=== PATIENT | female | born 1990 | race Caucasian/White ===

== ENCOUNTER 2019-05-16 11:58 | Emergency (ER) | payer SELFPAY ==
[2019-05-16] MEDS ORDERED: Sodium Chloride 0.9% 10 ML Syringe FLUSH PRN (12:30)
[2019-05-16] MEDS ORDERED: Sodium Chloride 0.9% 1,000 ML IV ONE (12:31)
[2019-05-16] MEDS ORDERED: HYDROmorphone 1 MG/ML Syringe IVPUSH ONE (12:41)
[2019-05-16] MEDS ORDERED: Ondansetron 4 MG/2 ML SDV IVPUSH ONE (12:42)
--- NOTE | 2019-05-16 12:57 | EDM.PDOC ---
ED HPI GENERAL MEDICAL PROBLEM - General Chief Complaint: DIRECTOR OF BILLING Problem Stated Complaint: VAGINAL BLEEDING Time Seen by Provider: 05/16/19 12:10 Source of Information: Reports: Patient, RN Notes Reviewed History Limitations: Reports: No Limitations - History of Present Illness INITIAL COMMENTS - FREE TEXT/NARRATIVE: Patient is a 28-year-old female who presents to the ED for evaluation of vaginal bleeding. Patient notes that she had her Mirena IUD taken out by Dr. Bunn on April 11. She notes this went without complications, and she states that she bled per her vagina for 2 weeks after this without any pain. She notes that after 2 week period, she did have unprotected sexual intercourse with a gentleman who had a vasectomy, so she does not think there is any chance she could be . She notes that the bleeding stopped for about 17 days, but then she developed some heavy vaginal bleeding Wednesday night, and this has continued through today. She reports feeling weak, light headed, with severe lower abdominal pain. She does note a headache as well, and she does not have a history of headaches. She reports soaking through an extra observers he tampon, and pad several times a day. She also notes some chills, but has not really had a fever. Some mild nausea, no vomiting but has had diarrhea. She denies any dysuria, urinary urgency or frequency. She did not take any sort of pain medications at home prior to this. She did not follow up with Dr. Bunn regarding this route of vaginal bleeding. Patient notes she has had 2 C-sections previously, and has had a gallbladder removal, but no other abdominal surgeries. Lower Pelvic Pain Score (Numeric/FACES): 10 - Related Data Allergies Allergy/AdvReac Type Severity Reaction Status Date / Time No Known Allergies Allergy Verified 05/16/19 12:15 Home Meds: Home Meds Naproxen [Naprosyn] 500 mg PO Q12HR #20 tab 05/16/19 [Rx] Past Medical History DIRECTOR OF BILLING History: Reports: - Past Surgical History HEENT Surgical History: Reports: Tonsillectomy GI Surgical History: Reports: Cholecystectomy Female Surgical History: Reports: Section Social & Family History - Family History Endocrine/Metabolic: Reports: Diabetes, type II Oncologic: Reports: Colon, Pancreatic - Tobacco Use Smoking Status *Q: Current Every Day Smoker Years of Tobacco use: 14 Packs/Tins Daily: 0.5 - Caffeine Use Caffeine Use: Reports: Coffee - Recreational Drug Use Recreational Drug Use: No ED ROS GENERAL - Review of Systems Review Of Systems: See Below Constitutional: Reports: Chills. Denies: Fever HEENT: Reports: No Symptoms Respiratory: Denies: Shortness of Breath, Cough Cardiovascular: Denies: Chest Pain Endocrine: Reports: No Symptoms GI/Abdominal: Reports: Abdominal Pain (lower abdominal pain), Diarrhea, Nausea. Denies: Vomiting : Reports: Irregular Menses (had IUD, now has vag bleeding s/p one month past removal), Pain (lower abd/suprapubic). Denies: Dysuria Musculoskeletal: Reports: No Symptoms Skin: Reports: No Symptoms Neurological: Reports: Dizziness, Headache, Weakness, Other (pre-syncope feelings). Denies: Syncope Psychiatric: Reports: No Symptoms Hematologic/Lymphatic: Reports: No Symptoms Immunologic: Reports: No Symptoms ED EXAM, RENAL/ - Physical Exam Exam: See Below Exam Limited By: No Limitations General Appearance: Alert, WD/WN, No Apparent Distress Respiratory/Chest: No Respiratory Distress, Lungs Clear, Normal Breath Sounds, No Accessory Muscle Use, Chest Non-Tender Cardiovascular: Normal Peripheral Pulses, Regular Rate, Rhythm, No Edema, No Murmur GI/Abdominal: Normal Bowel Sounds, Soft, No Distention, No Mass, Tender ( bilateral lower abdomen). No: Rigid, Rebound (Female) Exam: Normal External Exam, Normal Speculum Exam, Uterine Tenderness , Vaginal Bleeding (small pool of blood in speculum on exam. pt did have midline tenderness on bimanual) Extremities: Normal Inspection, Normal Capillary Refill Neurological: Alert, Oriented, Normal Cognition, No Motor/Sensory Deficits Psychiatric: Normal Affect, Normal Mood Skin Exam: Warm, Dry, Intact, Normal Color, No Rash Course - Vital Signs Last Recorded V/S: Last Vital Signs Temp 98.0 F 05/16/19 12:08 Pulse 97 05/16/19 12:08 Resp 16 05/16/19 12:08 BP 116/81 05/16/19 12:08 Pulse Ox 99 05/16/19 12:08 Orthostatic Blood Pressure [ 127/91 Standing] Orthostatic Blood Pressure [ 120/77 Sitting] Orthostatic Blood Pressure [ 116/81 Supine] - Orders/Labs/Meds Orders: Active Orders 24 hr Category Date Time Status Peripheral IV Care [RC] . DIRECTED Care 05/16/19 12:30 Ordered Sodium Chloride 0.9% [Saline Flush] Med 05/16/19 12:30 Ordered 10 ml FLUSH ASDIRECTED PRN Peripheral IV Insertion Adult [OM.PC] Stat Oth 05/16/19 12:29 Ordered Medication Orders Sodium Chloride (Saline Flush) 10 ml FLUSH ASDIRECTED PRN PRN Reason: Keep Vein Open Last Admin: 05/16/19 12:54 Dose: 10 ml Labs: Laboratory Tests 05/16/19 05/16/19 05/16/19 Range/Units 12:45 12:45 12:45 WBC (3.98-10.04) K/mm3 RBC (3.98-5.22) M/mm3 Hgb 14.4 (11.2-15.7) gm/dl Hct 42.8 (34.1-44.9) % MCV (79.4-94.8) fl MCH (25.6-32.2) pg MCHC (32.2-35.5) g/dl RDW Std Deviation (36.4-46.3) fL Plt Count (182-369) K/mm3 MPV (9.4-12.3) fl Neutrophils % (Manual) (40-60) % Band Neutrophils % (0-10) % Lymphocytes % (Manual) (20-40) % Atypical Lymphs % % Monocytes % (Manual) (2-10) % Eosinophils % (Manual) (0.7-5.8) % Basophils % (Manual) (0.1-1.2) Platelet Estimate Plt Morphology Comment RBC Morph Comment C-Reactive Protein (<1.0) mg/dL HCG, Qual Negative (NEGATIVE) Urine Color (Yellow) Urine Appearance (Clear) Urine pH (5.0-8.0) Ur Specific [place] (1.005-1.030) Urine Protein (Negative) Urine Glucose (UA) (Negative) Urine Ketones (Negative) Urine Occult Blood (Negative) Urine Nitrite (Negative) Urine Bilirubin (Negative) Urine Urobilinogen (0.2-1.0) Ur Leukocyte Esterase (Negative) Urine RBC (0-5) /hpf Urine WBC (0-5) /hpf Ur Epithelial Cells (0-5) /hpf Urine Bacteria (FEW) /hpf Urine Mucus (FEW) /hpf Blood Type A POSITIVE Gel Antibody Screen Negative 05/16/19 05/16/19 05/16/19 Range/Units 12:45 13:25 14:15 WBC 6.65 (3.98-10.04) K/mm3 RBC 4.66 (3.98-5.22) M/mm3 Hgb 13.8 (11.2-15.7) gm/dl Hct 41.7 (34.1-44.9) % MCV 89.5 (79.4-94.8) fl MCH 29.6 (25.6-32.2) pg MCHC 33.1 (32.2-35.5) g/dl RDW Std Deviation 42.9 (36.4-46.3) fL Plt Count 228 (182-369) K/mm3 MPV 10.3 (9.4-12.3) fl Neutrophils % (Manual) 54 (40-60) % Band Neutrophils % 0 (0-10) % Lymphocytes % (Manual) 45 H (20-40) % Atypical Lymphs % 0 % Monocytes % (Manual) 1 L (2-10) % Eosinophils % (Manual) 0 L (0.7-5.8) % Basophils % (Manual) 0 L (0.1-1.2) Platelet Estimate Adequate Plt Morphology Comment Normal RBC Morph Comment Normal C-Reactive Protein 0.2 (<1.0) mg/dL HCG, Qual (NEGATIVE) Urine Color Red H (Yellow) Urine Appearance Cloudy H (Clear) Urine pH 6.0 (5.0-8.0) Ur Specific [place] 1.020 (1.005-1.030) Urine Protein 2+ H (Negative) Urine Glucose (UA) Negative (Negative) Urine Ketones Negative (Negative) Urine Occult Blood 3+ H (Negative) Urine Nitrite Negative (Negative) Urine Bilirubin 1+ H (Negative) Urine Urobilinogen 0.2 (0.2-1.0) Ur Leukocyte Esterase Negative (Negative) Urine RBC Too numerous to cnt H (0-5) /hpf Urine WBC Not seen (0-5) /hpf Ur Epithelial Cells 0-5 (0-5) /hpf Urine Bacteria Not seen (FEW) /hpf Urine Mucus Not seen (FEW) /hpf Blood Type Gel Antibody Screen Meds: Medications Generic Name Dose Route Start Last Admin Trade Name David PRN Reason Stop Dose Admin Sodium Chloride 10 ml 05/16/19 12:30 05/16/19 12:54 Saline Flush FLUSH 10 ml ASDIRECTED PRN Administration Keep Vein Open Discontinued Medications Generic Name Dose Route Start Last Admin Trade Name David PRN Reason Stop Dose Admin Hydromorphone HCl 1 mg 05/16/19 12:41 05/16/19 12:58 Dilaudid IVPUSH 05/16/19 12:42 1 mg ONETIME ONE Administration Sodium Chloride 1,000 mls @ 999 mls/hr 05/16/19 12:31 05/16/19 12:54 Normal Saline IV 05/16/19 13:31 999 mls/hr ONETIME ONE Administration Ondansetron HCl 4 mg 05/16/19 12:42 05/16/19 12:56 Zofran IVPUSH 05/16/19 12:43 4 mg ONETIME ONE Administration Oxycodone/Acetaminophen 1 tab 05/16/19 13:39 05/16/19 13:46 Percocet 325-5 Mg PO 05/16/19 13:40 1 tab ONETIME ONE Administration - Re-Assessments/Exams Free Text/Narrative Re-Assessment/Exam: 05/16/19 13:06 Patient presents to the ED for evaluation of vaginal bleeding. Due to the length of time of this being after her IUD removal, this very well likely could be the start of her menstrual periods cycle for her. I did order IV placed with some IV fluids, HCG to r/o , hemoglobin and hematocrit, orthostatic vital signs, type and screen, 1 mg Dilaudid and 4 mg Zofran for initial management. The triage nurse did orthostatic vital signs upon arrival, these did not appear to be positive. Due to the patient's subjective complaints , I do not believe that a liter of fluids would necessarily hurt her. 05/16/19 13:40 RN informs me that the patient is still having pain, I did order 1 tab Percocet 5/325 for further pain management. 05/16/19 14:54 I did talk with Dr. Cagle, DIRECTOR OF BILLING on-call, and due to the normal labs, he would suggest that this is probably just her first menstrual period starting again. He notes to have her take some higher dose NSAID therapy and do some follow-up from there. Departure - Departure Time of Disposition: 14:58 Disposition: Home, Self-Care 01 Condition: Fair Clinical Impression: Dysmenorrhea - Discharge Information *PRESCRIPTION DRUG MONITORING PROGRAM REVIEWED*: No *COPY OF PRESCRIPTION DRUG MONITORING REPORT IN PATIENT TRINH: No Instructions: Dysmenorrhea, [id number] Referrals: Taylor Downs NP [Primary Care Provider] - Forms: ED Department Discharge Additional Instructions: You were evaluated in the ER today regarding your vaginal bleeding. All of your laboratory evaluation was within normal limits, you're not that today's ER visit. You did not have any sort of bacterial infection at today's visit. Our DIRECTOR OF BILLING doctor on-call was consulted on this case regarding your symptoms, and he is in agreement that this is likely the start of your regular menses after the IUD removal. He further recommends Naprosyn 500 mg every 12 hours for pain relief, and heating pads to the area for further pain relief. Recommend following up with DIRECTOR OF BILLING, for further management of the dysmenorrhea, (painful periods). You might want to think about going on some form of control to help regulate hormones if you're not try to get . Please return to the ED if her symptoms should change or worsen. - My Orders Last 24 Hours: My Active Orders 05/16/19 12:29 Peripheral IV Insertion Adult [OM.PC] Stat 05/16/19 12:30 Peripheral IV Care [RC] . DIRECTED Sodium Chloride 0.9% [Saline Flush] 10 ml FLUSH ASDIRECTED PRN - Assessment/Plan Last 24 Hours: My Active Orders 05/16/19 12:29 Peripheral IV Insertion Adult [OM.PC] Stat 05/16/19 12:30 Peripheral IV Care [RC] . DIRECTED Sodium Chloride 0.9% [Saline Flush] 10 ml FLUSH ASDIRECTED PRN
[2019-05-16] MEDS ORDERED: Acetaminophen/oxyCODONE 325-5 MG Tab PO ONE (13:39)
[2019-05-16] MEDS ORDERED: Ketorolac 30 MG/ML SDV IVPUSH ONE (15:10)
== END 2019-05-16 15:21 | disposition home or self-care (01) ==
LOC: JD.ED 11:58
DX: N94.6 Dysmenorrhea, unspecified (principal); F17.210 Nicotine dependence, cigarettes, uncomplicated; Z90.49 Acquired absence of other specified parts of digestive tract
CPT/HCPCS: 36415; 81001; 84703; 85007; 85014; 85018; 85027; 86140; 86850; 86900; 86901; 87210; 87808; 96361; 96374; 96375; 99284; A9270; J1170; J1885; J2405; J7040; 99283

== ENCOUNTER 2022-06-24 07:33 | Emergency (ER) | payer MEDICAID ==
[2022-06-24] MEDS ORDERED: Ondansetron 4 MG/2 ML SDV IVPUSH ONE (08:10)
[2022-06-24] MEDS ORDERED: Sodium Chloride 0.9% 10 ML Syringe FLUSH PRN (08:10)
[2022-06-24] MEDS ORDERED: HYDROmorphone 0.5 MG/0.5 ML Syringe IVPUSH ONE ×2 (08:11→11:35)
[2022-06-24] MEDS ORDERED: Codeine/Promethazine 10-6.25 MG/5 ML Syrup 5 ML UD Cup PO ONE (08:11)
[2022-06-24] MEDS ORDERED: Sodium Chloride 0.9% 1,000 ML IV SCH (08:15)
[2022-06-24] MEDS ORDERED: Ketorolac 30 MG/ML SDV IVPUSH ONE (09:10)
[2022-06-24] MEDS ORDERED: HYDROmorphone 1 MG/ML Syringe IVPUSH ONE (10:01)
[2022-06-24] MEDS ORDERED: Albuterol/Ipratropium 3.0-0.5 MG/3 ML Neb Soln NEB ONE (11:00)
== END 2022-06-24 12:07 | disposition home or self-care (01) ==
LOC: JD.ED 07:33
DX: R11.2 Nausea with vomiting, unspecified (principal); B97.4 Respiratory syncytial virus as the cause of diseases classified elsewhere
CPT/HCPCS: 36415; 71045; 80053; 85025; 86140; 94640; 96361; 96374; 96375; 96376; 99285; A9270; J1170; J1885; J2405; J3490; J7030; J7620-GY

== ENCOUNTER 2022-09-22 22:43 | Emergency (ER) | payer SELFPAY ==
[2022-09-22] MEDS ORDERED: HYDROmorphone 1 MG/ML Syringe IVPUSH ONE (22:57)
[2022-09-22] MEDS ORDERED: Metoclopramide 10 MG/2 ML SDV IVPUSH ONE (22:57)
[2022-09-22] MEDS ORDERED: diphenhydrAMINE 50 MG/ML SDV IVPUSH ONE (22:58)
[2022-09-22] MEDS ORDERED: Sodium Chloride 0.9% 1,000 ML IV SCH (23:00)
[2022-09-22] MEDS ORDERED: Ketorolac 30 MG/ML SDV IVPUSH SCH (23:00)
== END 2022-09-23 00:32 | disposition home or self-care (01) ==
LOC: JD.ED 22:43
DX: N23 Unspecified renal colic (principal); J45.909 Unspecified asthma, uncomplicated; Z79.899 Other long term (current) drug therapy; Z86.16 Personal history of COVID-19
CPT/HCPCS: 74176; 81001; 96361; 96374; 96375; 99284; J1170; J1200; J1885; J2765; J7030

== ENCOUNTER 2023-03-03 16:07 | Emergency (ER) | payer MEDICAID | END 2023-03-03 17:30 | disposition home or self-care (01) | LOC: JD.ED 16:07 | DX: R11.2 Nausea with vomiting, unspecified (principal); F17.210 Nicotine dependence, cigarettes, uncomplicated; E66.9 Obesity, unspecified; Z86.16 Personal history of COVID-19; Z79.899 Other long term (current) drug therapy; W18.2XXA Fall in (into) shower or empty bathtub, initial encounter; Y92.002 Bathroom of unspecified non-institutional (private) residence as the place of occurrence of the external cause | CPT/HCPCS: 99282; 99283 ==

== ENCOUNTER 2023-05-25 16:38 | Emergency (ER) | payer MEDICAID ==
[2023-05-25] MEDS ORDERED: Metoclopramide 10 MG/2 ML SDV IVPUSH ONE (17:32)
[2023-05-25 18:04] LABS: BASOPHILS ABSOLUTE AUTO 0.1 K/mm3 (0.0-0.2); BASOPHILS PERCENT AUTO 0.7 % (0.0-1.0); EOSINOPHILS ABSOLUTE AUTO 0.1 K/mm3 (0.0-0.4); EOSINOPHILS PERCENT AUTO 1.5 % (0.0-6.0); HEMATOCRIT 44.8 % (37.0-47.0); HEMOGLOBIN 15.3 gm/dl (12.0-16.0); IMMATURE GRAN ABSOLUTE AUTO 0.03 K/mm3 (0.00-0.05); IMMATURE GRAN PERCENT AUTO 0.4 % (0.0-0.4); LYMPHOCYTES ABSOLUTE AUTO 2.5 K/mm3 (1.0-4.8); LYMPHOCYTES PERCENT AUTO 34.2 % (24.0-44.0); MEAN CORPUSCULAR HEMOGLOBIN 30.8 pg (28.0-32.0); MEAN CORPUSCULAR HGB CONC 34.2 g/dl (32.0-36.0); MEAN CORPUSCULAR VOLUME 90.3 fl (83.0-99.0); MEAN PLATELET VOLUME 9.8 fl (9.4-12.3); MONOCYTES ABSOLUTE AUTO 0.6 K/mm3 (0.0-0.8); NEUTROPHILS ABSOLUTE AUTO 4.1 K/mm3 (1.8-7.7); NEUTROPHILS PERCENT AUTO 55.2 % (41.0-71.0); PLATELET COUNT,PLT 238 K/mm3 (150-400); RED BLOOD CELL COUNT 4.96 M/mm3 (4.10-5.30)
[2023-05-25 18:09] LABS: INR 0.96; PROTHROMBIN TIME 10.3 SECONDS (9.7-12.0)
[2023-05-25 18:10] LABS: PTT,PARTIAL THROMBOPLSTIN TIME 25.9 SECONDS (21.7-31.4)
[2023-05-25 18:16] LABS: A/G RATIO 0.9 (1-2); ALBUMIN 3.5 g/dl (3.4-5.0); BILIRUBIN TOTAL 0.3 mg/dL (0.2-1.0); BUN/CREATININE RATIO 8.8 (14-18); C-REACTIVE PROTEIN 0.6 mg/dL (<1.0); CALCIUM 8.9 mg/dL (8.5-10.1); CREATININE 0.8 mg/dL (0.55-1.02); EST CRCL DRUG DOSING (CG) 87.99 mL/min; MAGNESIUM 1.9 mg/dL (1.8-2.4); PROTEIN TOTAL,TP 7.3 g/dl (6.4-8.2)
[2023-05-25] MEDS ORDERED: Dextrose 5%-0.9% NaCl 1,000 ML IV SCH (18:45)
[2023-05-25] MEDS ORDERED: HYDROmorphone 1 MG/ML Syringe IVPUSH ONE (18:46)
[2023-05-25] MEDS ORDERED: diphenhydrAMINE 50 MG/ML SDV IVPUSH ONE (18:47)
[2023-05-25] MEDS ORDERED: HYDROmorphone 1 MG/ML Syringe IVPUSH PRN (20:28)
== END 2023-05-25 21:17 | disposition home or self-care (01) ==
LOC: JD.ED 16:38
DX: G43.009 Migraine without aura, not intractable, without status migrainosus (principal); E66.9 Obesity, unspecified; Z86.16 Personal history of COVID-19; Z79.899 Other long term (current) drug therapy
CPT/HCPCS: 36415; 70450; 70496; 70498; 80053; 82947; 83735; 85025; 85610; 85730; 86140; 93005; 96374; 96375; 96376; 99284; J1170; J1200; J2765; J7042; 93010

== ENCOUNTER 2023-08-26 09:49 | Emergency (ER) | payer MEDICAID ==
[2023-08-26] MEDS: Sodium Chloride 0.9% 1,000 ML IV SCH (11:23)
[2023-08-26] MEDS: diphenhydrAMINE 50 MG/ML SDV IVPUSH ONE (11:23)
[2023-08-26] MEDS: Magnesium Sulfate/Water 2 GM in Premix Bag 1 BAG IV ONE (11:24)
[2023-08-26] MEDS: Metoclopramide 10 MG/2 ML SDV IVPUSH ONE (11:24)
[2023-08-26] MEDS ORDERED: Ketorolac 30 MG/ML SDV IVPUSH ONE (12:35)
[2023-08-26] MEDS: Ketorolac 15 MG/ML SDV IVPUSH ONE (12:54)
[2023-08-26] MEDS: Haloperidol Lactate 5 MG/ML SDV IVPUSH ONE (12:54)
[2023-08-26] MEDS: Dexamethasone 4 MG Tab PO ONE (12:55)
[2023-08-26] MEDS: SUMAtriptan 6 MG/0.5 ML SDV SUBCUT ONE (13:29)
== END 2023-08-26 14:22 | disposition home or self-care (01) ==
LOC: JD.ED 09:49
DX: G43.909 Migraine, unspecified, not intractable, without status migrainosus (principal); K02.9 Dental caries, unspecified; E66.9 Obesity, unspecified; F17.210 Nicotine dependence, cigarettes, uncomplicated; Z68.42 Body mass index [BMI] 45.0-49.9, adult; Z79.899 Other long term (current) drug therapy; Z86.16 Personal history of COVID-19; Z90.49 Acquired absence of other specified parts of digestive tract
CPT/HCPCS: 96365; 96366; 96372; 96375; 99283; J1200; J1630; J1885; J2765; J3030; J3475; J7030; J8540

== ENCOUNTER 2023-10-07 09:23 | Emergency (ER) | payer MEDICAID ==
[2023-10-07] MEDS ORDERED: Prochlorperazine 10 MG in Sodium Chloride 0.9% 50 ML IV ONE (10:02)
[2023-10-07] MEDS: Ketorolac 15 MG/ML SDV IVPUSH ONE (10:17)
[2023-10-07] MEDS: Prochlorperazine 10 MG/2 ML SDV IV ONE (10:18)
[2023-10-07] MEDS: Sodium Chloride 0.9% 1,000 ML IV ONE (10:18)
[2023-10-07] MEDS: Sodium Chloride 0.9% 10 ML Syringe FLUSH PRN (10:18)
[2023-10-07 10:19] LABS: BASOPHILS ABSOLUTE AUTO 0.1 K/mm3 (0.0-0.2); BASOPHILS PERCENT AUTO 0.9 % (0.0-1.0); EOSINOPHILS ABSOLUTE AUTO 0.1 K/mm3 (0.0-0.4); EOSINOPHILS PERCENT AUTO 1.6 % (0.0-6.0); HEMATOCRIT 46.4 % (37.0-47.0); HEMOGLOBIN 15.6 gm/dl (12.0-16.0); IMMATURE GRAN ABSOLUTE AUTO 0.02 K/mm3 (0.00-0.05); IMMATURE GRAN PERCENT AUTO 0.4 % (0.0-0.4); LYMPHOCYTES ABSOLUTE AUTO 2.3 K/mm3 (1.0-4.8); LYMPHOCYTES PERCENT AUTO 42.3 % (24.0-44.0); MEAN CORPUSCULAR HEMOGLOBIN 29.1 pg (28.0-32.0); MEAN CORPUSCULAR HGB CONC 33.6 g/dl (32.0-36.0); MEAN CORPUSCULAR VOLUME 86.6 fl (83.0-99.0); MEAN PLATELET VOLUME 9.6 fl (9.4-12.3); MONOCYTES ABSOLUTE AUTO 0.4 K/mm3 (0.0-0.8); MONOCYTES PERCENT AUTO 6.9 % (0.0-8.0); NEUTROPHILS ABSOLUTE AUTO 2.6 K/mm3 (1.8-7.7); NEUTROPHILS PERCENT AUTO 47.9 % (41.0-71.0); PLATELET COUNT,PLT 299 K/mm3 (150-400); RED BLOOD CELL COUNT 5.36 M/mm3 (4.10-5.30); WHITE BLOOD CELL COUNT,WBC 5.51 K/mm3 (3.9-11.3)
[2023-10-07] MEDS: Albuterol 0.083% 2.5 MG/3 ML Neb Soln NEB ONE (10:25)
[2023-10-07 10:36] LABS: A/G RATIO 0.9 (1-2); ALBUMIN 3.8 g/dl (3.4-5.0); ANION GAP 17.7 (5-15); BILIRUBIN TOTAL 0.5 mg/dL (0.2-1.0); BUN/CREATININE RATIO 13.8 (14-18); CALCIUM 9.1 mg/dL (8.5-10.1); CREATININE 0.8 mg/dL (0.55-1.02); EST CRCL DRUG DOSING (CG) 87.18 mL/min; POTASSIUM,K 3.7 mEq/L (3.5-5.1); PROTEIN TOTAL,TP 8.1 g/dl (6.4-8.2)
[2023-10-07 10:52] LABS: CORONAVIRUS COVID-19 NAA NEGATIVE (NEGATIVE); INFLUENZA A NAA NEGATIVE (NEGATIVE)
[2023-10-07] MEDS: diphenhydrAMINE 50 MG/ML SDV IVPUSH ONE ×3 (11:01)
== END 2023-10-07 12:31 | disposition home or self-care (01) ==
LOC: JD.ED 09:23
DX: K52.9 Noninfective gastroenteritis and colitis, unspecified (principal); J40 Bronchitis, not specified as acute or chronic; G43.909 Migraine, unspecified, not intractable, without status migrainosus; B34.8 Other viral infections of unspecified site; J45.909 Unspecified asthma, uncomplicated; E66.9 Obesity, unspecified; Z79.899 Other long term (current) drug therapy; Z86.16 Personal history of COVID-19; Z90.49 Acquired absence of other specified parts of digestive tract; Z87.891 Personal history of nicotine dependence; Z68.42 Body mass index [BMI] 45.0-49.9, adult
CPT/HCPCS: 0240U; 36415; 80053; 85025; 94640; 96361; 96374; 96375; 99284; J0780; J1200; J1885; J3490; J7030; J7620-GY

== ENCOUNTER 2023-10-28 07:55 | Emergency (ER) | payer MEDICAID ==
[2023-10-28] MEDS: Lidocaine 2% with EPINEPHrine 1:100,000 20 ML MDV INJECT ONE (08:40)
[2023-10-28] MEDS: diphenhydrAMINE 50 MG/ML SDV IVPUSH STA (08:59)
[2023-10-28] MEDS: Ketorolac 30 MG/ML SDV IVPUSH ONE (09:01)
[2023-10-28] MEDS: Metoclopramide 10 MG/2 ML SDV IVPUSH ONE (09:03)
[2023-10-28] MEDS: Lactated Ringers 1,000 ML IV ONE (09:05)
[2023-10-28] MEDS: Doxycycline Monohydrate 100 MG Cap PO ONE (11:08)
[2023-10-28] MEDS: SUMAtriptan 6 MG/0.5 ML SDV SUBCUT ONE (11:08)
== END 2023-10-28 12:02 | disposition home or self-care (01) ==
LOC: JD.ED 07:55
DX: L02.415 Cutaneous abscess of right lower limb (principal); G43.901 Migraine, unspecified, not intractable, with status migrainosus; F17.210 Nicotine dependence, cigarettes, uncomplicated; E66.9 Obesity, unspecified
CPT/HCPCS: 10060; 96361; 96372; 96374; 96375; 99283; A9270; J1200; J1885; J2765; J3030; J7120; 99284; J3490

== ENCOUNTER 2023-11-27 14:40 | Emergency (ER) | payer MEDICAID ==
[2023-11-27] MEDS: Ketorolac 60 MG/2 ML SDV IM ONE (16:00)
[2023-11-27] MEDS: traMADol 50 MG Tab PO ONE (17:30)
== END 2023-11-27 17:32 | disposition home or self-care (01) ==
LOC: JD.ED 14:40
DX: M25.571 Pain in right ankle and joints of right foot (principal); J45.909 Unspecified asthma, uncomplicated; E66.9 Obesity, unspecified; Z90.49 Acquired absence of other specified parts of digestive tract; Z87.891 Personal history of nicotine dependence; Z79.899 Other long term (current) drug therapy; Z68.41 Body mass index [BMI] 40.0-44.9, adult
CPT/HCPCS: 73610; 96372; 99283; A9270; J1885

== ENCOUNTER 2024-03-13 08:10 | Emergency (ER) | payer MEDICAID ==
[2024-03-13 10:19] LABS: BASOPHILS PERCENT AUTO 0.8 % (0.0-1.0); EOSINOPHILS ABSOLUTE AUTO 0.1 K/mm3 (0.0-0.4); EOSINOPHILS PERCENT AUTO 2.1 % (0.0-6.0); HEMATOCRIT 43.1 % (37.0-47.0); HEMOGLOBIN 14.6 gm/dl (12.0-16.0); IMMATURE GRAN ABSOLUTE AUTO 0.01 K/mm3 (0.00-0.05); IMMATURE GRAN PERCENT AUTO 0.2 % (0.0-0.4); LYMPHOCYTES ABSOLUTE AUTO 1.8 K/mm3 (1.0-4.8); LYMPHOCYTES PERCENT AUTO 34.4 % (24.0-44.0); MEAN CORPUSCULAR HEMOGLOBIN 30.6 pg (28.0-32.0); MEAN CORPUSCULAR HGB CONC 33.9 g/dl (32.0-36.0); MEAN CORPUSCULAR VOLUME 90.4 fl (83.0-99.0); MONOCYTES ABSOLUTE AUTO 0.5 K/mm3 (0.0-0.8); MONOCYTES PERCENT AUTO 9.1 % (0.0-8.0); NEUTROPHILS ABSOLUTE AUTO 2.8 K/mm3 (1.8-7.7); NEUTROPHILS PERCENT AUTO 53.4 % (41.0-71.0); PLATELET COUNT,PLT 202 K/mm3 (150-400); RED BLOOD CELL COUNT 4.77 M/mm3 (4.10-5.30); WHITE BLOOD CELL COUNT,WBC 5.29 K/mm3 (3.9-11.3)
[2024-03-13 10:56] LABS: A/G RATIO 1.1 (1-2); ALBUMIN 3.5 g/dl (3.4-5.0); BILIRUBIN TOTAL 0.4 mg/dL (0.2-1.0); BUN/CREATININE RATIO 7.1 (14-18); CALCIUM 8.8 mg/dL (8.5-10.1); CREATININE 0.7 mg/dL (0.55-1.02); EST CRCL DRUG DOSING (CG) 99.63 mL/min; PROTEIN TOTAL,TP 6.7 g/dl (6.4-8.2)
[2024-03-13 11:28] LABS: LACTIC ACID 0.7 mmol/L (0.4-2.0)
[2024-03-13] MEDS: Sodium Chloride 0.9% 10 ML Syringe FLUSH PRN ×2 (11:33→11:49)
[2024-03-13] MEDS: Iopamidol 612 MG/ML 100 ML Bottle IVPUSH ONE (11:33)
[2024-03-13] MEDS: Ondansetron 4 MG/2 ML SDV IVPUSH ONE (11:49)
[2024-03-13] MEDS: Ketorolac 15 MG/ML SDV IVPUSH ONE (11:49)
[2024-03-13] MEDS: Iopamidol 612 MG/ML 30 ML SDV IVPUSH ONE (13:50)
[2024-03-13] MEDS ORDERED: Naloxone 0.4 MG/ML SDV IVPUSH PRN (15:16)
[2024-03-13] MEDS: fentaNYL 100 MCG/2 ML SDV IVPUSH ONE (15:30)
[2024-03-13 16:14] LABS: CORONAVIRUS COVID-19 NAA NEGATIVE (NEGATIVE); INFLUENZA A NAA NEGATIVE (NEGATIVE); RESPIRATORY SYNCYTIAL VIR NAA NEGATIVE (NEGATIVE)
== END 2024-03-13 17:26 | disposition home or self-care (01) ==
LOC: JD.ED 08:10
DX: L98.9 Disorder of the skin and subcutaneous tissue, unspecified (principal); J45.909 Unspecified asthma, uncomplicated; E66.9 Obesity, unspecified; Z68.42 Body mass index [BMI] 45.0-49.9, adult; F17.210 Nicotine dependence, cigarettes, uncomplicated; Z79.899 Other long term (current) drug therapy; Z90.49 Acquired absence of other specified parts of digestive tract
CPT/HCPCS: 0241U; 36415; 71046; 71260; 74177; 80053; 83605; 83690; 84703; 85025; 85379; 86140; 87040; 96374; 96375; 99284; J1885; J2405; J3010; J3490; Q9967

== ENCOUNTER 2024-03-23 00:57 | Emergency (ER) | payer MEDICAID ==
[2024-03-23] MEDS: Ketorolac 30 MG/ML SDV IVPUSH ONE (01:36)
[2024-03-23] MEDS: Ondansetron 4 MG/2 ML SDV IVPUSH ONE (01:36)
[2024-03-23] MEDS: Sodium Chloride 0.9% 10 ML Syringe FLUSH PRN (01:36)
[2024-03-23 01:48] LABS: BASOPHILS ABSOLUTE AUTO 0.1 K/mm3 (0.0-0.2); BASOPHILS PERCENT AUTO 0.8 % (0.0-1.0); EOSINOPHILS ABSOLUTE AUTO 0.2 K/mm3 (0.0-0.4); EOSINOPHILS PERCENT AUTO 2.3 % (0.0-6.0); HEMATOCRIT 45.3 % (37.0-47.0); IMMATURE GRAN ABSOLUTE AUTO 0.01 K/mm3 (0.00-0.05); IMMATURE GRAN PERCENT AUTO 0.2 % (0.0-0.4); LYMPHOCYTES ABSOLUTE AUTO 2.8 K/mm3 (1.0-4.8); LYMPHOCYTES PERCENT AUTO 43.1 % (24.0-44.0); MEAN CORPUSCULAR HEMOGLOBIN 29.8 pg (28.0-32.0); MEAN CORPUSCULAR HGB CONC 33.1 g/dl (32.0-36.0); MEAN CORPUSCULAR VOLUME 90.1 fl (83.0-99.0); MEAN PLATELET VOLUME 10.2 fl (9.4-12.3); MONOCYTES ABSOLUTE AUTO 0.5 K/mm3 (0.0-0.8); MONOCYTES PERCENT AUTO 8.3 % (0.0-8.0); NEUTROPHILS PERCENT AUTO 45.3 % (41.0-71.0); PLATELET COUNT,PLT 255 K/mm3 (150-400); RED BLOOD CELL COUNT 5.03 M/mm3 (4.10-5.30); WHITE BLOOD CELL COUNT,WBC 6.52 K/mm3 (3.9-11.3)
[2024-03-23 02:26] LABS: ALBUMIN 3.6 g/dl (3.4-5.0); ANION GAP 16.5 (5-15); BILIRUBIN TOTAL 0.5 mg/dL (0.2-1.0); C-REACTIVE PROTEIN 0.2 mg/dL (<0.30); CALCIUM 8.7 mg/dL (8.5-10.1); CREATININE 0.8 mg/dL (0.55-1.02); EST CRCL DRUG DOSING (CG) 87.18 mL/min; MAGNESIUM 1.7 mg/dL (1.8-2.4); POTASSIUM,K 3.5 mEq/L (3.5-5.1); PROTEIN TOTAL,TP 7.1 g/dl (6.4-8.2)
[2024-03-23] MEDS: Tamsulosin 0.4 MG Cap.ER PO ONE (02:37)
== END 2024-03-23 02:48 | disposition home or self-care (01) ==
LOC: JD.ED 00:57
DX: N13.2 Hydronephrosis with renal and ureteral calculous obstruction (principal); E66.9 Obesity, unspecified; F17.210 Nicotine dependence, cigarettes, uncomplicated; Z79.899 Other long term (current) drug therapy; Z90.49 Acquired absence of other specified parts of digestive tract; Z68.42 Body mass index [BMI] 45.0-49.9, adult
CPT/HCPCS: 36415; 74176; 80053; 83735; 85025; 86140; 96374; 96375; 99284; A9270; J1885; J2405; J3490

== ENCOUNTER 2024-04-11 00:23 | Emergency (ER) | payer MEDICAID ==
[2024-04-11] MEDS ORDERED: Sodium Chloride 0.9% 10 ML Syringe FLUSH PRN (00:54)
[2024-04-11 01:01] LABS: BASOPHILS ABSOLUTE AUTO 0.1 K/mm3 (0.0-0.2); BASOPHILS PERCENT AUTO 0.6 % (0.0-1.0); EOSINOPHILS ABSOLUTE AUTO 0.2 K/mm3 (0.0-0.4); EOSINOPHILS PERCENT AUTO 1.8 % (0.0-6.0); HEMATOCRIT 46.6 % (37.0-47.0); HEMOGLOBIN 15.6 gm/dl (12.0-16.0); IMMATURE GRAN ABSOLUTE AUTO 0.02 K/mm3 (0.00-0.05); IMMATURE GRAN PERCENT AUTO 0.2 % (0.0-0.4); LYMPHOCYTES ABSOLUTE AUTO 3.1 K/mm3 (1.0-4.8); LYMPHOCYTES PERCENT AUTO 36.6 % (24.0-44.0); MEAN CORPUSCULAR HEMOGLOBIN 29.9 pg (28.0-32.0); MEAN CORPUSCULAR HGB CONC 33.5 g/dl (32.0-36.0); MEAN CORPUSCULAR VOLUME 89.4 fl (83.0-99.0); MEAN PLATELET VOLUME 10.3 fl (9.4-12.3); MONOCYTES ABSOLUTE AUTO 0.8 K/mm3 (0.0-0.8); MONOCYTES PERCENT AUTO 9.2 % (0.0-8.0); NEUTROPHILS ABSOLUTE AUTO 4.3 K/mm3 (1.8-7.7); NEUTROPHILS PERCENT AUTO 51.6 % (41.0-71.0); PLATELET COUNT,PLT 268 K/mm3 (150-400); RED BLOOD CELL COUNT 5.21 M/mm3 (4.10-5.30); WHITE BLOOD CELL COUNT,WBC 8.38 K/mm3 (3.9-11.3)
[2024-04-11] MEDS: HYDROmorphone 0.5 MG/0.5 ML Syringe IVPUSH ONE ×2 (01:04→02:15)
[2024-04-11] MEDS: Ketorolac 30 MG/ML SDV IVPUSH ONE (01:05)
[2024-04-11] MEDS: Sodium Chloride 0.9% 1,000 ML IV STA (01:05)
[2024-04-11] MEDS: Ondansetron 4 MG/2 ML SDV ONE (01:05)
[2024-04-11 01:49] LABS: A/G RATIO 0.9 (1-2); ALBUMIN 3.6 g/dl (3.4-5.0); ANION GAP 17.8 (5-15); BILIRUBIN TOTAL 0.3 mg/dL (0.2-1.0); CALCIUM 9.2 mg/dL (8.5-10.1); EST CRCL DRUG DOSING (CG) 72.68 mL/min; PROTEIN TOTAL,TP 7.6 g/dl (6.4-8.2)
[2024-04-11 01:54] LABS: POTASSIUM,K 3.8 mEq/L (3.5-5.1)
[2024-04-11 02:30] LABS: APPEARANCE,URINE CLOUDY (Clear); BILIRUBIN,URINE NEGATIVE (Negative); COLOR,URINE YELLOW (Yellow); GLUCOSE,URINE NEGATIVE (Negative); KETONES,URINE TRACE (Negative); LEUKOCYTE ESTERASE,URINE NEGATIVE (Negative); NITRITE,URINE NEGATIVE (Negative); OCCULT BLOOD,URINE 3+ (Negative); PROTEIN,URINE 1+ (Negative); UROBILINOGEN,URINE 0.2 (0.2-1.0)
[2024-04-11 02:49] LABS: BACTERIA,URINE MODERATE /hpf (FEW); CALCIUM OXALATE CRYSTALS,URINE RARE; MUCUS,URINE FEW /hpf (FEW); RBC,URINE 50-75 /hpf (0-5); WBC,URINE 0-5 /hpf (0-5)
== END 2024-04-11 03:24 | disposition home or self-care (01) ==
LOC: JD.ED 00:23
DX: N13.2 Hydronephrosis with renal and ureteral calculous obstruction (principal); N23 Unspecified renal colic; E66.9 Obesity, unspecified; Z68.41 Body mass index [BMI] 40.0-44.9, adult; J45.909 Unspecified asthma, uncomplicated; Z90.49 Acquired absence of other specified parts of digestive tract; Z79.899 Other long term (current) drug therapy
CPT/HCPCS: 36415; 74176; 80053; 81001; 83690; 84703; 85025; 96361; 96374; 96375; 96376; 99284; J1170; J1885; J2405; J7030

== ENCOUNTER 2024-04-12 08:22 | Emergency (ER) | payer MEDICAID ==
[2024-04-12 09:43] LABS: BASOPHILS PERCENT AUTO 0.5 % (0.0-1.0); EOSINOPHILS ABSOLUTE AUTO 0.1 K/mm3 (0.0-0.4); EOSINOPHILS PERCENT AUTO 2.1 % (0.0-6.0); HEMATOCRIT 45.5 % (37.0-47.0); HEMOGLOBIN 14.7 gm/dl (12.0-16.0); IMMATURE GRAN ABSOLUTE AUTO 0.03 K/mm3 (0.00-0.05); IMMATURE GRAN PERCENT AUTO 0.5 % (0.0-0.4); LYMPHOCYTES ABSOLUTE AUTO 1.7 K/mm3 (1.0-4.8); LYMPHOCYTES PERCENT AUTO 25.6 % (24.0-44.0); MEAN CORPUSCULAR HEMOGLOBIN 29.6 pg (28.0-32.0); MEAN CORPUSCULAR HGB CONC 32.3 g/dl (32.0-36.0); MEAN CORPUSCULAR VOLUME 91.5 fl (83.0-99.0); MONOCYTES ABSOLUTE AUTO 0.5 K/mm3 (0.0-0.8); MONOCYTES PERCENT AUTO 7.1 % (0.0-8.0); NEUTROPHILS ABSOLUTE AUTO 4.3 K/mm3 (1.8-7.7); NEUTROPHILS PERCENT AUTO 64.2 % (41.0-71.0); PLATELET COUNT,PLT 207 K/mm3 (150-400); RED BLOOD CELL COUNT 4.97 M/mm3 (4.10-5.30); WHITE BLOOD CELL COUNT,WBC 6.61 K/mm3 (3.9-11.3)
[2024-04-12] MEDS: Ondansetron 4 MG/2 ML SDV IVPUSH ONE (09:46)
[2024-04-12] MEDS: Sodium Chloride 0.9% 10 ML Syringe FLUSH PRN (09:48)
[2024-04-12] MEDS: HYDROmorphone 0.5 MG/0.5 ML Syringe IVPUSH ONE ×3 (09:48→12:00)
[2024-04-12] MEDS: Sodium Chloride 0.9% 1,000 ML IV SCH (09:51)
[2024-04-12 09:57] LABS: A/G RATIO 0.9 (1-2); ALBUMIN 3.3 g/dl (3.4-5.0); ANION GAP 14.4 (5-15); BILIRUBIN TOTAL 0.5 mg/dL (0.2-1.0); EST CRCL DRUG DOSING (CG) 69.74 mL/min; POTASSIUM,K 3.4 mEq/L (3.5-5.1); PROTEIN TOTAL,TP 7.2 g/dl (6.4-8.2)
[2024-04-12 11:50] LABS: APPEARANCE,URINE SLT CLOUDY (Clear); BILIRUBIN,URINE NEGATIVE (Negative); COLOR,URINE YELLOW (Yellow); GLUCOSE,URINE NEGATIVE (Negative); KETONES,URINE NEGATIVE (Negative); LEUKOCYTE ESTERASE,URINE TRACE (Negative); NITRITE,URINE NEGATIVE (Negative); OCCULT BLOOD,URINE 2+ (Negative); PH,URINE 6.5 (5.0-8.0); PROTEIN,URINE NEGATIVE (Negative); UROBILINOGEN,URINE 0.2 (0.2-1.0)
[2024-04-12 12:16] LABS: BACTERIA,URINE FEW /hpf (FEW); MUCUS,URINE FEW /hpf (FEW); RBC,URINE 30-40 /hpf (0-5)
== END 2024-04-12 13:15 | disposition home or self-care (01) ==
LOC: JD.ED 08:22
DX: N20.2 Calculus of kidney with calculus of ureter (principal); E66.9 Obesity, unspecified; F17.210 Nicotine dependence, cigarettes, uncomplicated; Z90.49 Acquired absence of other specified parts of digestive tract; Z68.42 Body mass index [BMI] 45.0-49.9, adult
CPT/HCPCS: 36415; 80053; 81001; 85025; 96361; 96374; 96375; 96376; 99284; J1170; J2405; J3490; J7030

== ENCOUNTER 2024-05-02 15:22 | Emergency (ER) | payer MEDICAID ==
[2024-05-02] MEDS: diphenhydrAMINE 50 MG/ML SDV IVPUSH ONE (16:14)
[2024-05-02] MEDS: Metoclopramide 10 MG/2 ML SDV IVPUSH ONE (16:14)
[2024-05-02] MEDS: Ketorolac 30 MG/ML SDV IVPUSH ONE (16:14)
[2024-05-02] MEDS: Haloperidol Lactate 5 MG/ML SDV IVPUSH ONE (16:14)
[2024-05-02 16:36] LABS: BASOPHILS PERCENT AUTO 0.6 % (0.0-1.0); EOSINOPHILS ABSOLUTE AUTO 0.1 K/mm3 (0.0-0.4); EOSINOPHILS PERCENT AUTO 2.1 % (0.0-6.0); HEMATOCRIT 46.6 % (37.0-47.0); HEMOGLOBIN 15.8 gm/dl (12.0-16.0); IMMATURE GRAN ABSOLUTE AUTO 0.02 K/mm3 (0.00-0.05); IMMATURE GRAN PERCENT AUTO 0.3 % (0.0-0.4); LYMPHOCYTES ABSOLUTE AUTO 2.9 K/mm3 (1.0-4.8); LYMPHOCYTES PERCENT AUTO 43.3 % (24.0-44.0); MEAN CORPUSCULAR HEMOGLOBIN 29.8 pg (28.0-32.0); MEAN CORPUSCULAR HGB CONC 33.9 g/dl (32.0-36.0); MEAN CORPUSCULAR VOLUME 87.8 fl (83.0-99.0); MEAN PLATELET VOLUME 9.9 fl (9.4-12.3); MONOCYTES ABSOLUTE AUTO 0.4 K/mm3 (0.0-0.8); MONOCYTES PERCENT AUTO 6.6 % (0.0-8.0); NEUTROPHILS ABSOLUTE AUTO 3.1 K/mm3 (1.8-7.7); NEUTROPHILS PERCENT AUTO 47.1 % (41.0-71.0); PLATELET COUNT,PLT 266 K/mm3 (150-400); RED BLOOD CELL COUNT 5.31 M/mm3 (4.10-5.30); WHITE BLOOD CELL COUNT,WBC 6.63 K/mm3 (3.9-11.3)
[2024-05-02] MEDS: Sodium Chloride 0.9% 1,000 ML IV SCH (16:53)
[2024-05-02 17:04] LABS: A/G RATIO 0.9 (1-2); ALBUMIN 3.7 g/dl (3.4-5.0); ANION GAP 17.8 (5-15); BILIRUBIN TOTAL 0.4 mg/dL (0.2-1.0); BUN/CREATININE RATIO 11.3 (14-18); CALCIUM 9.1 mg/dL (8.5-10.1); CREATININE 0.8 mg/dL (0.55-1.02); EST CRCL DRUG DOSING (CG) 87.18 mL/min; PROTEIN TOTAL,TP 7.9 g/dl (6.4-8.2)
[2024-05-02 17:05] LABS: POTASSIUM,K 3.8 mEq/L (3.5-5.1)
== END 2024-05-02 17:52 | disposition home or self-care (01) ==
LOC: JD.ED 15:22
DX: G43.901 Migraine, unspecified, not intractable, with status migrainosus (principal); J45.909 Unspecified asthma, uncomplicated; E66.9 Obesity, unspecified; F17.210 Nicotine dependence, cigarettes, uncomplicated; Z79.899 Other long term (current) drug therapy; Z86.16 Personal history of COVID-19; Z90.49 Acquired absence of other specified parts of digestive tract; Z68.41 Body mass index [BMI] 40.0-44.9, adult
CPT/HCPCS: 36415; 70450; 80053; 85025; 96361; 96374; 96375; 99284; J1200; J1630; J1885; J2765; J7030; 99283

== ENCOUNTER 2024-05-24 13:56 | Emergency (ER) | payer MEDICAID ==
[2024-05-24] MEDS: Metoclopramide 10 MG/2 ML SDV IVPUSH ONE (14:28)
[2024-05-24] MEDS: Ketorolac 30 MG/ML SDV IVPUSH ONE (14:29)
[2024-05-24] MEDS: HYDROmorphone 0.5 MG/0.5 ML Syringe IVPUSH ONE ×3 (14:31→17:30)
[2024-05-24] MEDS: diphenhydrAMINE 50 MG/ML SDV IVPUSH ONE (14:31)
[2024-05-24] MEDS: Sodium Chloride 0.9% 1,000 ML IV STA (14:37)
[2024-05-24 14:48] LABS: BASOPHILS ABSOLUTE AUTO 0.1 K/mm3 (0.0-0.2); BASOPHILS PERCENT AUTO 0.7 % (0.0-1.0); EOSINOPHILS ABSOLUTE AUTO 0.1 K/mm3 (0.0-0.4); EOSINOPHILS PERCENT AUTO 1.2 % (0.0-6.0); HEMATOCRIT 47.1 % (37.0-47.0); HEMOGLOBIN 15.9 gm/dl (12.0-16.0); IMMATURE GRAN ABSOLUTE AUTO 0.03 K/mm3 (0.00-0.05); IMMATURE GRAN PERCENT AUTO 0.4 % (0.0-0.4); LYMPHOCYTES ABSOLUTE AUTO 2.3 K/mm3 (1.0-4.8); LYMPHOCYTES PERCENT AUTO 27.3 % (24.0-44.0); MEAN CORPUSCULAR HEMOGLOBIN 29.4 pg (28.0-32.0); MEAN CORPUSCULAR HGB CONC 33.8 g/dl (32.0-36.0); MEAN CORPUSCULAR VOLUME 87.2 fl (83.0-99.0); MEAN PLATELET VOLUME 10.3 fl (9.4-12.3); MONOCYTES ABSOLUTE AUTO 0.5 K/mm3 (0.0-0.8); MONOCYTES PERCENT AUTO 6.3 % (0.0-8.0); NEUTROPHILS ABSOLUTE AUTO 5.4 K/mm3 (1.8-7.7); NEUTROPHILS PERCENT AUTO 64.1 % (41.0-71.0); PLATELET COUNT,PLT 320 K/mm3 (150-400)
[2024-05-24 15:31] LABS: ALBUMIN 4.2 g/dl (3.4-5.0); ANION GAP 17.3 (5-15); BILIRUBIN TOTAL 0.8 mg/dL (0.2-1.0); BUN/CREATININE RATIO 7.5 (14-18); CALCIUM 9.2 mg/dL (8.5-10.1); CREATININE 0.8 mg/dL (0.55-1.02); EST CRCL DRUG DOSING (CG) 87.18 mL/min; POTASSIUM,K 3.3 mEq/L (3.5-5.1); PROTEIN TOTAL,TP 8.4 g/dl (6.4-8.2)
[2024-05-24] MEDS: Iopamidol 612 MG/ML 100 ML Bottle IVPUSH ONE (16:04)
[2024-05-24] MEDS: Sodium Chloride 0.9% 10 ML Syringe FLUSH ONE (16:05)
[2024-05-24 16:20] LABS: APPEARANCE,URINE CLOUDY (Clear); BILIRUBIN,URINE 2+ (Negative); COLOR,URINE AMBER (Yellow); GLUCOSE,URINE NEGATIVE (Negative); KETONES,URINE 2+ (Negative); LEUKOCYTE ESTERASE,URINE NEGATIVE (Negative); NITRITE,URINE NEGATIVE (Negative); OCCULT BLOOD,URINE 3+ (Negative); PH,URINE 5.5 (5.0-8.0); PROTEIN,URINE 2+ (Negative); UROBILINOGEN,URINE 0.2 (0.2-1.0)
[2024-05-24 16:47] LABS: AMORPHOUS SEDIMENT,URINE MANY /hpf (NOT SEEN); BACTERIA,URINE MODERATE /hpf (FEW); MUCUS,URINE MODERATE /hpf (FEW); RBC,URINE >100 /hpf (0-5); SQUAMOUS EPITHELIAL CELLS,UR 0-5 /hpf (0-5); WBC,URINE 0-5 /hpf (0-5); YEAST BUDDING,URINE FEW (NOT SEEN)
[2024-05-24] MEDS: Acetaminophen/oxyCODONE 325-5 MG Tab PO ONE (17:29)
== END 2024-05-24 17:38 | disposition home or self-care (01) ==
LOC: JD.ED 13:56
DX: N20.0 Calculus of kidney (principal); J45.909 Unspecified asthma, uncomplicated; E66.9 Obesity, unspecified; Z86.16 Personal history of COVID-19; Z90.49 Acquired absence of other specified parts of digestive tract; Z79.899 Other long term (current) drug therapy; Z68.41 Body mass index [BMI] 40.0-44.9, adult
CPT/HCPCS: 36415; 74177; 74177-26; 80053; 81001; 84703; 85025; 86140; 96361; 96374; 96375; 96376; 99283; 99284-25; A9270-GY; J1171; J1200; J1885; J2765; J3490; J7030; Q9967